=== PATIENT | male | born 1985 | race Caucasian/White ===

== ENCOUNTER → 2017-04-29 16:48 | Outpatient (CLI) | payer MEDICAID, SELFPAY ==
--- NOTE | 2017-04-29 16:55 | XR_ITS ---
XR hand RT min 3V HISTORY: Right hand pain following injury ITS.REASON: CONTUSION OF RT HAND, INITIAL ENCOUNTER ORDERING PHYSICIAN: Edvin Ray MD PATIENT AGE: 31 years COMPARISON: None FINDINGS: No fracture or dislocation. No lytic or blastic change. There is normal mineralization.. The joint spaces are well-preserved. No significant degenerative/arthritic changes. No erosive changes evident.. IMPRESSION: Negative, no acute finding
== END ==
PROVIDERS: PCP Internal Medicine Adolescent Medicine; Visit Provider Internal Medicine Adolescent Medicine
DX: S60.221A Contusion of right hand, initial encounter (principal)
CPT/HCPCS: 73130

== ENCOUNTER → 2017-11-02 12:10 | Outpatient (CLI) | payer MEDICAID, SELFPAY ==
--- NOTE | 2017-11-02 12:12 | CA_ITS ---
PROCEDURE: 2-D M-mode and color Doppler study INDICATIONS FOR THE TEST: Chest pain + COPD Heart Murmur Tobacco Smoking Palpitations Fatigue+ Syncope Edema Hypertension+Diabetes Mellitus Rheumatic Fever SOB+GUTIERREZ+Obesity Hyperlipidemia Family History HD Additional History DIZZINESS, ABN EKG PATIENT INFORMATION HEIGHT: 72 WEIGHT:210 GENDER: Male B/P:152/85 2-D/M-MODE INTERPRETATION: 2-D MEASUREMENTS OBSERVED VALUES IN CMS Right Ventricular Dimension (RVDd) 2.2 Interventricular Septum (Thickness)(IVsd) 1.1 Left Ventricular Internal Dimensions(LVIDd) 5.6 Left Ventricular Posterior Wall (Thickness)(LVPWd) 0.8 Aortic Root 3.2 Aortic Cusp Separation 2.3 Left Atrial Dimensions (LAD) 3.5 2D 1. Left atrium is normal size, left ventricle is normal size, there is preserved left ventricular systolic function, visually estimated ejection fraction 55% with no obvious regional wall motion abnormality. 2. The right atrium and right ventricle are normal size and contractility. 3. The aortic valve is minimally thickened and fibrosed. 4. The mitral valve leaflets are mildly myxomatous, there is mild prolapse, there is no mitral stenosis. 5. The tricuspid valve is grossly normal. 6. The pulmonic valve is poorly visualized. 7. No significant pericardial effusion noted. DOPPLER INTERROGATION: Doppler interrogation of the aortic, mitral and tricuspid valve reveals presence of mild mitral and tricuspid regurgitation, tricuspid regurgitant jet velocity is insufficient for calculation of the right ventricular systolic pressure, diastolic parameters are within normal range. CONCLUSION: 1. Normal left ventricular size, preserved left ventricular systolic function, visually estimated ejection fraction 55% with no obvious regional wall motion abnormality. Diastolic parameters are within normal range. 2. Mild mitral valve prolapse associated with mild mitral regurgitation 3. Mild tricuspid regurgitation 4. No significant pericardial effusion noted.
== END ==
PROVIDERS: PCP Internal Medicine Adolescent Medicine; Visit Provider Internal Medicine
DX: R94.31 Abnormal electrocardiogram [ECG] [EKG] (principal); R06.00 Dyspnea, unspecified; R42 Dizziness and giddiness; R00.2 Palpitations; I20.8 Other forms of angina pectoris
CPT/HCPCS: 93306

== ENCOUNTER → 2017-11-11 11:58 | Outpatient (CLI) | payer MEDICAID, SELFPAY | PROVIDERS: PCP Internal Medicine Adolescent Medicine; Visit Provider Internal Medicine | DX: T82.868A Thrombosis due to vascular prosthetic devices, implants and grafts, initial encounter (principal) | CPT/HCPCS: 93926; 93931 ==

== ENCOUNTER → 2017-11-23 08:43 | Outpatient (CLI) | payer MEDICAID, SELFPAY ==
--- NOTE | 2017-11-23 08:44 | CT_ITS ---
CT angio chest HISTORY: Shortness of air ITS.REASON: soa ORDERING PHYSICIAN: Kael Ovalle MD PATIENT AGE: 32 years COMPARISON: 07/18/2016 TECHNIQUE: Axial images obtained following the administration of 75 mL of Isovue 370 . Sagittal, and coronal reformatted images are also generated and reviewed. All CT scans at the facility use one or more dose reduction, viz: automated exposure control, ma/kV adjustment per patient size (including targeted exams where dose is matched to indication, i.e. head), or iterative reconstruction technique. FINDINGS: No evidence of aortic aneurysm or dissection. No evidence of pulmonary embolus. No mediastinal or hilar mass or adenopathy. Normal heart size. No evidence of pericardial effusion. There is calcified granuloma in the central aspect of the right upper lobe. Lungs are otherwise clear without evidence consolidation mass or effusion. No central obstructing lesions. No acute bony anomalies. Images of the upper abdomen show no acute finding. The celiac artery is patent however, the origin of the celiac artery is not visualized on this study and is below the level of its normal origin at the T12 region. There could be a common origin of celiac and SMA however, this area is not imaged on this study. IMPRESSION: 1. Negative CT angiogram of the chest, no acute finding. No evidence of pulmonary embolus, aortic aneurysm, or aortic dissection. 2. 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
--- NOTE | 2017-11-23 09:23 | HMH.ITSHM ---
AMLODIPINE,LISINOPRIL HCTZ,METOPROLOL
== END ==
PROVIDERS: PCP Internal Medicine Adolescent Medicine; Visit Provider Internal Medicine
DX: R06.00 Dyspnea, unspecified (principal)
CPT/HCPCS: 71275; Q9967

== ENCOUNTER → 2020-03-14 11:54 | Outpatient (CLI) | payer OTHER, SELFPAY ==
[2020-03-14 13:05] LABS: Bilirubin,Unconjugated 0.6 mg/dL (0.0-1.1)
[2020-03-14 13:06] LABS: Alanine Aminotransferase 33 U/L (12-78); Alkaline Phosphatase 57 U/L (38-126); Aspartate Amino Transferase 34 U/L (17-59); Bilirubin,Indirect 0.6 mg/dL (0.0-0.9); Bilirubin,Total 0.6 mg/dl (0.2-1.3); Chol/HDL Ratio 4.3 (1-3.5); Cholesterol 185 mg/dl (140-200); HDL Cholesterol 43 mg/dl (40-60); Total Protein,Serum 8.1 g/dl (6.3-8.2); Triglycerides 154 mg/dl (30-150); VLDL Cholesterol 31 mg/dL (0-40)
[2020-03-14 13:17] LABS: Direct LDL Cholesterol 108.08 mg/dL (100-129)
== END ==
PROVIDERS: Visit Provider Urology
DX: R00.2 Palpitations (principal); Z79.899 Other long term (current) drug therapy
CPT/HCPCS: 36415; 80061; 80076

== ENCOUNTER → 2020-03-15 12:32 | Outpatient (CLI) | payer OTHER, SELFPAY ==
--- NOTE | 2020-03-15 12:33 | CA_ITS ---
APPROVED REPORT EXAM: Comprehensive 2D, Doppler, and color-flow Echocardiogram [employer] Climber: Roselia Moreira RT(R) Ht: 6 ft 0 in Wt: 228lbs BSA: 2.25 BP: 131/83 mmHg Indications: tachycardia, CP, ex smoker, palpitations, HTN, GUTIERREZ, obesity 2D Dimensions LVOT 2.25 cm (M/F) 1.5-2.5 M-Mode Dimensions RVDd 2.09 cm (0.9-2.6) LA Diam 2.78 cm (1.9-4.0) LVDd 5.13 cm (3.5-5.7) Ao Diam 3.05 cm (2.0-3.7) LVDs 3.80 cm (3.5-5.7) IVSd 0.91 cm (0.6-1.1) PWd 1.25 cm (0.6-1.1) EF (Teich) 50.60% FS 25.90% EDV (Teich) 125.50 mL ESV (Teich) 62.00 mL LV Diastology E Decel Time 180.00 (160-240 msec) E/A Ratio 2.0 MED E' 12.40 (< 7 cm/sec) E'/MED E' Ratio 6.58 (>14) LAT E' 15.30 (<10 cm/sec) E/LAT E' Ratio 5.33 (>14) Mitral Valve MV E Max Parvez. 82.00 (40-130 cm/s) MV A Velocity 41.00 (40-130 cm/s) E/A Ratio 1.97 MV Decel. Time 180.00 (160-240 ms) MV PHT 53.00 ms Left Ventricle Left atrium is normal size, left ventricle is normal size, visually estimated ejection fraction 55% with no regional wall motion abnormality, diastolic parameters are within normal range. Right Ventricle Right atrium and right ventricle are normal size and contractility. Aortic Valve Aortic valve is grossly normal, there is no aortic stenosis or aortic insufficiency. Mitral Valve Mitral valve is grossly normal, there is trace mitral regurgitation. Tricuspid Valve Tricuspid valve is grossly normal, there is trace tricuspid regurgitation, tricuspid regurgitation jet velocity is inadequate for calculation of the right ventricular systolic pressure. Pulmonic Valve Pulmonic valve is poorly visualized. Great Vessels Aortic root is normal size. Pericardium No significant pericardial effusion noted Conclusion 1. Normal left ventricular size, preserved left ventricular systolic function, visually estimated ejection fraction 55% with no regional wall motion abnormality, diastolic parameters are within normal range. 2. Trace mitral and tricuspid regurgitation of no hemodynamic significance. 3. No significant pericardial effusion noted. Electronically signed by : Joey Escalera, 03/15/2020 15:27:09
== END ==
PROVIDERS: PCP Internal Medicine Adolescent Medicine; Visit Provider Urology
DX: R07.89 Other chest pain (principal); R00.0 Tachycardia, unspecified; R06.00 Dyspnea, unspecified; I10 Essential (primary) hypertension
CPT/HCPCS: 93306

== ENCOUNTER 2020-04-30 18:13 | Inpatient (IN) | payer OTHER, SELFPAY ==
--- NOTE | 2020-04-30 16:52 | CT_ITS ---
PROCEDURE: CT ORBIT BI WO/W CON CLINICAL HISTORY: swelling left eye, pre-auricular LNs Left possible cellulitis Left eye red and revpllen for 2 weeks. Pt handles chemically treated eye spots COMPARISON: No exams were available for comparison TECHNIQUE: Axial images obtained with sagittal and coronal reformats. All CT scans at the facility use one or more dose reduction, viz: automated exposure control, ma/kV adjustment per patient size (including targeted exams where dose is matched to indication, i.e. head), or iterative reconstruction technique. FINDINGS: There is a thin rind of increased soft tissue density along the inferior aspect of the left orbit anteriorly this appears to be preseptal. This shows some minimal enhancement and may be due to periorbital cellulitis. No postseptal inflammation. No obvious abscess. There is some increased density also in the subcutaneous soft tissues in the infraorbital region on the left. No obvious abscess. The orbit itself has an unremarkable appearance. The extraocular muscles are unremarkable. No orbital mass. No evidence of sinusitis. No fractures. Incidental note is made of a solid appearing nodule in the left parotid gland at 1.9 cm. This is in the anterior and superior aspect of the left parotid. There are few small nodular opacities in the parotid on both sides and may be due to small lymph nodes.. IMPRESSION: The findings are compatible with left periorbital cellulitis. There is a thin rind of increased soft tissue density along the inferior aspect of the left orbit anteriorly and in the appropriate clinical setting may represent cellulitis. Please correlate with clinical parameters. No postseptal inflammation or edema apparent. Consider follow-up to confirm resolution 19 mm left parotid nodule and may be due to a Warthin's tumor or pleomorphic adenoma. Dictated by: Erich Walker MD 05/01/2020 09:11 Erich Walker MD in [place] 05/01/2020 09:11
[2020-04-30 18:06] VITALS: BP 112/85; PULSE 121; RESP 16; TEMP 37.4; O2SAT 96; BMI 30.4
--- NOTE | 2020-04-30 18:06 | PC.NURSE ---
Pt arrived to the floor at this time.
[2020-04-30 19:11] LABS: Basophils # 0.1 K/mm3 (0-0.2); Basophils % 0.7 % (0.1-2.0); Eosinophils # 0.4 K/mm3 (0.0-0.4); Eosinophils % 3.4 % (0.1-12.0); Hematocrit 46.4 % (42.0-52.0); Lymphocytes # 2.5 K/mm3 (0.7-4.5); Lymphocytes % 20.8 % (10-50); Mean Corpuscular HGB Conc 34.5 g/dL (31.8-35.4); Mean Corpuscular Hemoglobin 30.2 pg (27.0-31.2); Mean Corpuscular Volume 87.6 fl (80-94); Mean Platelet Volume 8.4 fl (7.4-10.4); Monocytes # 0.6 K/mm3 (0.1-1.0); Monocytes % 4.5 % (1.7-9.3); Neutrophils # 8.5 K/mm3 (1.8-7.8); Neutrophils % 70.6 % (37.0-80.0); Platelet Count 204 K/mm3 (142-424); Red Cell Distribution Width 13.1 % (11.5-17.5); White Blood Count 12.1 K/mm3 (4.8-10.8)
[2020-04-30 19:51] LABS: Coronavirus 19 IgG Antibody Negative (Negative); Coronavirus 19 IgM Antibody Negative (Negative)
[2020-04-30 20:00] VITALS: BP 121/71; PULSE 75; RESP 18; TEMP 37; O2SAT 94
--- NOTE | 2020-04-30 21:12 | HMH.HP ---
*Admission Date: 04/30/20 *Chief complaint: periorbital cellulitis, failure of outpatient therapy *History of present illness: Mr. Bo is a 34-year-old male who was seen last week in our office after onset of left eye pain and swelling. When seen on , he states that he had had approximately a week of worsening swelling, redness, soreness of his high with a tender lesion in front of his left ear. Denies any change in vision, pain with movement of his eye. No fever or known trauma. Was started on antibiotics at that time and seen for close follow-up over the weekend. On Thursday had subjective improvement in his symptoms and was tolerating oral antibiotics without difficulty. However since Thursday he has had worsening swelling of his eye, tenderness of his eyelids, and increased swelling of left preauricular lymph node. Still remains afebrile. Having clear drainage from his eye. Hemodynamically stable. Decision made to direct admit for further management including imaging of orbits/face with CT and IV antibiotics. [facility] History I have reviewed the patient's past medical history: Yes Medical History: Reports:: Hypertension, Palpitations Denies:: Cancer, Diabetes Mellitus Type 1, Diabetes Mellitus Type 2, Internal Pacemaker, MRSA, Seizures *Have you ever received a pneumonia vaccine?: No *Have you received a flu vaccine this season?: Yes Other Medical History: Reports: Other Other Surgeries: Yes: No Previous Surgery, Cardiac Catheterization (2019). No: Pacemaker Amputation: No Fractures: No - *Social History Last grade of school completed: High school graduate Smoking Status: Former smoker Tobacco Type: cigarettes Alcohol Intake: never Alcohol Intake Frequency:: holidays/special occasions only Substance Use Type: denies use *Occupational Status:: employed Housing: house Household Members: spouse, children *Travel in the last 8 weeks: None Family Hx:: Cancer Review of Systems - Review of Systems Review of systems:: pertinent systems reviewed and negative unless documented below (14 point review of systems performed, pertinent positives and negatives as per HPI) Meds Home Medications Medication Instructions Recorded Confirmed Type Amlodipine Besylate 10 mg PO DAILY 04/30/20 04/30/20 History Cefdinir [Omnicef 300mg Capsule] 300 mg PO BID 04/30/20 04/30/20 History Lisinopril/Hydrochlorothiazide 1 tab PO DAILY 04/30/20 04/30/20 History [Lisinopril-Hctz 20-12.5 mg Tab] Metoprolol Succinate [Metoprolol 100 mg PO DAILY 04/30/20 04/30/20 History Succinate 100mg Tablet*] Allergies Allergy/AdvReac Type Severity Reaction Status Date / Time amoxicillin [AMOXICILLIN] Allergy Unknown Verified 03/14/20 13:41 Penicillins [PENICILLINS] Allergy Unknown Verified 03/14/20 13:41 Exam Vital signs and Labs for Last 24 Hours: Temp Pulse Resp BP Pulse Ox 99.3 F 121 H 16 112/85 96 04/30/20 18:06 04/30/20 18:06 04/30/20 18:06 04/30/20 18:06 04/30/20 18:06 Laboratory Results - last 24 hr 04/30/20 18:50: WBC 12.1 H, RBC 5.30, Hgb 16.0, Hct 46.4, MCV 87.6, MCH 30.2, MCHC 34.5, RDW 13.1, Plt Count 204, MPV 8.4, Neut % (Auto) 70.6, Lymph % (Auto) 20.8, [place] % (Auto) 4.5, Eos % (Auto) 3.4, Baso % (Auto) 0.7, Neut # (Auto) 8.5 H, Lymph # (Auto) 2.5, [place] # (Auto) 0.6, Eos # (Auto) 0.4, Baso # (Auto) 0.1 04/30/20 18:50: SARS-CoV-2 IgG Ab (Rapid) Negative, SARS-CoV-2 IgM Ab (Rapid) Negative I & O for Last 24 hours: Intake & Output 04/27/20 04/28/20 04/29/20 04/30/20 23:59 23:59 23:59 23:59 Weight 101.86 kg - Constitutional no acute distress - *Routine HEENT Exam Head: Present: normocephalic Eye: Present: EOMI, PERRL, scleral injection, periorbital swelling (left), periorbital tenderness (left) ENT: Present: mucous membranes moist Comments: swollen left pre-auricular LN - *Routine Neck Exam Present: supple. Absent: lymphadenopathy - *Routine Respiratory Exam Present: CTA bilate
[2020-04-30 21:21] LABS: Alanine Aminotransferase 21 U/L (12-78); Albumin/Globulin Ratio 1.3 (1.1-1.8); Alkaline Phosphatase 84 U/L (38-126); Anion Gap 13.1 mEq/L (5-15); Aspartate Amino Transferase 27 U/L (17-59); Bilirubin,Total 0.4 mg/dl (0.2-1.3); Blood Urea Nitrogen 20 mg/dl (9-20); Calcium 9.7 mg/dl (8.4-10.2); Carbon Dioxide 26 mmol/L (22.0-30.0); Chloride 99 mmol/L (98-107); Creatinine Clearance Estimated 94 mL/min (50-200); Estimated Glomerular Filt Rate 50 ml/min (>60); GFR (African American) 60 ML/MIN (>60); Globulin 3.9 g/dL (1.3-3.2); Glucose 114 mg/dl (74-100); Potassium 4.1 mmoL/L (3.5-5.1); Sodium 134 mmol/L (136-145); Total Protein,Serum 8.9 g/dl (6.3-8.2)
--- NOTE | 2020-04-30 21:22 | PC.NURSE ---
Patient off Floor for CT scan.
--- NOTE | 2020-04-30 21:45 | PC.NURSE ---
patient back up to floor.
[2020-04-30 23:19] LABS: Erythrocyte Sedimentation Rate 18 mm/hr (0-15)
--- NOTE | 2020-05-01 03:46 | PC.NURSE ---
Pt has slept throughout this shift, Pt A&O x4, BLT lungs CTA, Bowel sounds present in all 4 quadrants, Pt is on RA, Pt denies headache, SOA, N/V, or pain. Pt has swelling around the Lt eye
[2020-05-01 04:00] VITALS: BP 116/68; PULSE 89; RESP 18; TEMP 36.6; O2SAT 99
[2020-05-01 05:18] VITALS: BMI 30.4
--- NOTE | 2020-05-01 06:40 | HMH.ACPN2 ---
Internal Medicine - PN: Subj *Date: 05/01/20 *Time: 10:44 Interval history: Patient remained afebrile overnight. I appears better this morning upon entering the room. Patient states it feels better as well, decreased pain and discomfort. No change in vision. Denies any nausea vomiting or diarrhea. No shortness of breath or cough. Discomfort of swelling in front of his left ear is also somewhat less painful today. Exam Vital signs and Labs for Last 24 Hours: Temp Pulse Resp BP Pulse Ox 97.8 F 89 18 116/68 99 05/01/20 04:00 05/01/20 04:00 05/01/20 04:00 05/01/20 04:00 05/01/20 04:00 Laboratory Results - last 24 hr 04/30/20 18:50: WBC 12.1 H, RBC 5.30, Hgb 16.0, Hct 46.4, MCV 87.6, MCH 30.2, MCHC 34.5, RDW 13.1, Plt Count 204, MPV 8.4, Neut % (Auto) 70.6, Lymph % (Auto) 20.8, [place] % (Auto) 4.5, Eos % (Auto) 3.4, Baso % (Auto) 0.7, Neut # (Auto) 8.5 H, Lymph # (Auto) 2.5, [place] # (Auto) 0.6, Eos # (Auto) 0.4, Baso # (Auto) 0.1 04/30/20 18:50: Sodium 134 L, Potassium 4.1, Chloride 99, Carbon Dioxide 26, Anion Gap 13.1, BUN 20, Creatinine 1.60 H, Estimated Creat Clear 94, Estimated GFR 50 L, Est GFR ( Amer) 60, Glucose 114 H, Calcium 9.7, Total Bilirubin 0.4, AST 27, ALT 21, Alkaline Phosphatase 84, Total Protein 8.9 H, Albumin 5.0, Globulin 3.9 H, Albumin/Globulin Ratio 1.3 04/30/20 18:50: SARS-CoV-2 IgG Ab (Rapid) Negative, SARS-CoV-2 IgM Ab (Rapid) Negative 04/30/20 18:50: ESR 18 H 04/30/20 18:50: C-Reactive Protein 57.0 H I & O for Last 24 hours: Intake & Output 04/28/20 04/29/20 04/30/20 05/01/20 23:59 23:59 23:59 23:59 Intake Total 360 / 360 Balance 360 / 360 Weight 101.86 kg 101.746 kg Narrative: - Constitutional no acute distress - *Routine HEENT Exam Head: Present: normocephalic Eye: Present: EOMI, PERRL, scleral injection, interval improvement and periorbital swelling (left), periorbital tenderness (left) ENT: Present: mucous membranes moist Comments: swollen left pre-auricular LN - *Routine Neck Exam Present: supple. Absent: lymphadenopathy - *Routine Respiratory Exam Present: CTA bilaterally - *Routine Cardiovascular Exam Present: RRR - *Routine Abdominal Exam Present: soft, normoactive bowel sounds. Absent: tenderness - *Routine Extremities Exam Absent: cyanosis, clubbing, edema - *Routine Skin Exam Present: warm. Absent: rash - *Routine Neurological Exam Present: alert, oriented X3 Assessment and Plan (1) Periorbital cellulitis of left eye Status: Acute Category: Medical Code(s): L03.213 - Periorbital cellulitis (2) Failure of outpatient treatment Status: Acute Category: Medical Code(s): Z78.9 - Other specified health status (3) HTN (hypertension) Status: Chronic Qualifiers: Hypertension type: essential hypertension Qualified Code(s): I10 - Essential (primary) hypertension Category: Medical Code(s): I10 - Essential (primary) hypertension (4) Obesity, Class I, BMI 30.0-34.9 (see actual BMI) Status: Chronic Category: Medical Code(s): E66.9 - Obesity, unspecified (5) RYAN (acute kidney injury) Status: Acute Category: Medical Code(s): N17.9 - Acute kidney failure, unspecified - Assessment and plan all Dx Assessment and Plan for all problems:: 34-year-old male with left periorbital cellulitis. Failed outpatient therapy. Admitted for IV antibiotics and CT of the face. CT performed, positive for cellulitis, no abscess behind orbit. Enlarged lymph node preauricular, suspicious for abscess. ENT unavailable, will consult general surgery to assist with possible I&D. Continue broad-spectrum antibiotics, appears to be having interval improvement since starting IV antibiotics. regular diet LR bolus x 1L over 2 hrs as creatinine somewhat improved, will continue some fluid resuscitation. Full code
--- NOTE | 2020-05-01 07:51 | P.CONPHA_ITS ---
- Pharmacy Consult Date: 05/01/20 Time: 07:51 Referring provider: DR. BEGUM Reason for Consult:: VANCOMYCIN DOSING Allergies and ADEs:: Allergies Allergy/AdvReac Type Severity Reaction Status Date / Time amoxicillin [AMOXICILLIN] Allergy Unknown Verified 03/14/20 13:41 Penicillins [PENICILLINS] Allergy Unknown Verified 03/14/20 13:41 Home Medications:: Home Medications Medication Instructions Recorded Confirmed Type Amlodipine Besylate 10 mg PO DAILY 04/30/20 04/30/20 History Cefdinir [Omnicef 300mg Capsule] 300 mg PO BID 04/30/20 04/30/20 History Lisinopril/Hydrochlorothiazide 1 tab PO DAILY 04/30/20 04/30/20 History [Lisinopril-Hctz 20-12.5 mg Tab] Metoprolol Succinate [Metoprolol 100 mg PO DAILY 04/30/20 04/30/20 History Succinate 100mg Tablet*] Height: 1.83 m Weight: 101.746 kg Laboratory Results:: Laboratory Results - last 24 hr 04/30/20 18:50: WBC 12.1 H, RBC 5.30, Hgb 16.0, Hct 46.4, MCV 87.6, MCH 30.2, MCHC 34.5, RDW 13.1, Plt Count 204, MPV 8.4, Neut % (Auto) 70.6, Lymph % (Auto) 20.8, [place] % (Auto) 4.5, Eos % (Auto) 3.4, Baso % (Auto) 0.7, Neut # (Auto) 8.5 H, Lymph # (Auto) 2.5, [place] # (Auto) 0.6, Eos # (Auto) 0.4, Baso # (Auto) 0.1 04/30/20 18:50: Sodium 134 L, Potassium 4.1, Chloride 99, Carbon Dioxide 26, Anion Gap 13.1, BUN 20, Creatinine 1.60 H, Estimated Creat Clear 94, Estimated GFR 50 L, Est GFR ( Amer) 60, Glucose 114 H, Calcium 9.7, Total Bilirubin 0.4, AST 27, ALT 21, Alkaline Phosphatase 84, Total Protein 8.9 H, Albumin 5.0, Globulin 3.9 H, Albumin/Globulin Ratio 1.3 04/30/20 18:50: SARS-CoV-2 IgG Ab (Rapid) Negative, SARS-CoV-2 IgM Ab (Rapid) Negative 04/30/20 18:50: ESR 18 H 04/30/20 18:50: C-Reactive Protein 57.0 H Medical History: Reports:: Hypertension, Palpitations Denies:: Cancer, Diabetes Mellitus Type 1, Diabetes Mellitus Type 2, Internal Pacemaker, MRSA, Seizures Assessment and Plan (1) Periorbital cellulitis of left eye Status: Acute Category: Medical Code(s): L03.213 - Periorbital cellulitis (2) Failure of outpatient treatment Status: Acute Category: Medical Code(s): Z78.9 - Other specified health status (3) HTN (hypertension) Status: Chronic Qualifiers: Hypertension type: essential hypertension Qualified Code(s): I10 - Essential (primary) hypertension Category: Medical Code(s): I10 - Essential (primary) hypertension - Assessment and plan all Dx Assessment and Plan for all problems:: Age: 34 yo Serum creatinine: 1.6 mg/dL Height: 72.0 Inches Weight (kg): 101 D Assessment: IBW (kg): 77.60 Dosing wt(kg): 101 Estimated Creatinine clearance (ml/min): 71.4 CRCL method: Cockcroft and Gault using ibw(default). Drug selected: Vancomycin Loading dose (mg): 0 Vd (liters): 80.8 (factor used: 0.8 L/kg) Deangelo (hr-1): 0.064 Half life (hrs): 10.83 Recommended dose: 1500 mg Interval: 12 hrs Infusion time (hrs): 2.0 Predicted peak (mcg/mL): 32.5 Predicted trough (mcg/mL): 17.14 Total body weight is being used for vancomycin dosing. Recommendations: Give Vancomycin 1500 mg q 12 hrs with an expected Cpeak of 32.5 mcg/ml and an expected Ctrough of 17.14 mcg/ml
[2020-05-01 08:00] VITALS: BP 122/78; PULSE 89; RESP 16; TEMP 37.1; O2SAT 99
--- NOTE | 2020-05-01 08:04 | P.CONPHA_ITS ---
[facility] Pharmacy VTE Monitoring - Patient Demographics Admission date: 05/01/20 Report Date: 05/01/20 Time: 08:04 Allergies/Adverse Reactions: Patient Allergies amoxicillin [AMOXICILLIN] Allergy (Unknown, Verified 03/14/20 13:41) Penicillins [PENICILLINS] Allergy (Unknown, Verified 03/14/20 13:41) Height: 1.83 m Weight: 101.746 kg Patient Problems: Current Active Problems Periorbital cellulitis of left eye (Acute) Failure of outpatient treatment (Acute) HTN (hypertension) (Chronic) - VTE Risk Labs: VTE Related Lab Results Hgb 16.0 g/dL (14.1-18.0) 04/30/20 18:50 Hct 46.4 % (42.0-52.0) 04/30/20 18:50 Plt Count 204 K/mm3 (142-424) 04/30/20 18:50 BUN 20 mg/dl (9-20) 04/30/20 18:50 Creatinine 1.60 mg/dl (0.66-1.25) H 04/30/20 18:50 Estimated Creat Clear 94 mL/min (50-200) 04/30/20 18:50 Was VTE Risk Assessment Performed: Yes VTE Score: 1 VTE Risk Level: Very Low Risk Clinical Trial Participant: No - Prophylaxis VTE Prophylaxis Ordered?: Yes Types of VTE Prophylaxis: TEDS Knee High
[2020-05-01 08:42] LABS: Chloride 98 mmol/L (98-107)
[2020-05-01 08:43] LABS: Potassium 3.5 mmoL/L (3.5-5.1); Sodium 135 mmol/L (136-145)
[2020-05-01 08:46] LABS: Anion Gap 9.5 mEq/L (5-15); Blood Urea Nitrogen 18 mg/dl (9-20); Calcium 9.3 mg/dl (8.4-10.2); Carbon Dioxide 31 mmol/L (22.0-30.0); Creatinine Clearance Estimated 107 mL/min (50-200); Estimated Glomerular Filt Rate 58 ml/min (>60); GFR (African American) 70 ML/MIN (>60); Glucose 114 mg/dl (74-100)
[2020-05-01 08:51] LABS: C-Reactive Protein 52.6 mg/L (0-4)
--- NOTE | 2020-05-01 10:13 | HMH.PHAINT ---
HOME MEDICATION RECONCILIATION COMPLETED USING LIST FROM HOME PHARMACY AND PT INTERVIEW
[2020-05-01 11:15] LABS: Basophils # 0.1 K/mm3 (0-0.2); Basophils % 0.6 % (0.1-2.0); Eosinophils # 0.5 K/mm3 (0.0-0.4); Eosinophils % 5.5 % (0.1-12.0); Hematocrit 42.8 % (42.0-52.0); Hemoglobin 14.8 g/dL (14.1-18.0); Lymphocytes # 1.8 K/mm3 (0.7-4.5); Lymphocytes % 20.8 % (10-50); Mean Corpuscular HGB Conc 34.6 g/dL (31.8-35.4); Mean Corpuscular Hemoglobin 29.9 pg (27.0-31.2); Mean Corpuscular Volume 86.5 fl (80-94); Mean Platelet Volume 8.9 fl (7.4-10.4); Monocytes # 0.5 K/mm3 (0.1-1.0); Monocytes % 5.8 % (1.7-9.3); Neutrophils # 5.7 K/mm3 (1.8-7.8); Neutrophils % 67.3 % (37.0-80.0); Platelet Count 171 K/mm3 (142-424); Red Blood Count 4.95 M/mm3 (4.60-6.20); Red Cell Distribution Width 13.3 % (11.5-17.5); White Blood Count 8.5 K/mm3 (4.8-10.8)
--- NOTE | 2020-05-01 12:54 | HMH.GSCON ---
*Admission Date: 05/01/20 *Reason for consult:: Facial edema and cellulitis *History of present illness: Mr. Bo is a 34-year-old male from [place] who has had left periorbital edema, redness, and swelling for about 2 weeks. He had presented to his primary care provider's office about 1 week ago and was started on antibiotics. Patient had transient improvement in his symptoms with oral antibiotics. However, he had subsequently developed worsening swelling of his eye, tenderness of his eyelids, and increased swelling of left preauricular nodule. Last night he was made a direct admit for further management including imaging of orbits/face with CT and IV antibiotics. He underwent CT scan which reveals findings consistent with periorbital cellulitis. There is also noted a nodule of the parotid gland. Reportedly ENT consultation was made but in ENT surgeons absence general surgical consultation was requested. Review of Systems - Review of Systems Review of systems:: pertinent systems reviewed and negative unless documented below [facility] History I have reviewed the patient's past medical history: Yes Medical History: Reports:: Hypertension, Palpitations Denies:: Cancer, Diabetes Mellitus Type 1, Diabetes Mellitus Type 2, Internal Pacemaker, MRSA, Seizures *Have you ever received a pneumonia vaccine?: No *Have you received a flu vaccine this season?: Yes Other Medical History: Reports: Other Other Surgeries: Yes: No Previous Surgery, Cardiac Catheterization (2019). No: Pacemaker Amputation: No Fractures: No - *Social History Last grade of school completed: High school graduate Smoking Status: Former smoker Tobacco Type: cigarettes Alcohol Intake: never Alcohol Intake Frequency:: holidays/special occasions only Substance Use Type: denies use *Occupational Status:: employed Housing: house Household Members: spouse, children *Travel in the last 8 weeks: None Family Hx:: Cancer Meds Home Medications Medication Instructions Recorded Confirmed Type Amlodipine Besylate 10 mg PO DAILY 04/30/20 04/30/20 History Cefdinir [Omnicef 300mg Capsule] 300 mg PO BID 04/30/20 04/30/20 History Lisinopril/Hydrochlorothiazide 1 tab PO DAILY 04/30/20 05/01/20 History [Lisinopril-Hctz 20-12.5 mg Tab] Metoprolol Succinate [Metoprolol 100 mg PO DAILY 02/01/21 02/01/21 History Succinate 100mg Tablet*] Sulfamethoxazole/Trimethoprim 1 tab PO BID 05/01/20 05/01/20 History [Bactrim DS tablet] Allergies Allergy/AdvReac Type Severity Reaction Status Date / Time amoxicillin [AMOXICILLIN] Allergy Unknown Verified 03/14/20 13:41 Penicillins [PENICILLINS] Allergy Unknown Verified 03/14/20 13:41 Exam Vital signs and Labs for Last 24 Hours: Temp Pulse Resp BP Pulse Ox 98.8 F 89 16 122/78 99 05/01/20 08:00 05/01/20 08:00 05/01/20 08:00 05/01/20 08:00 05/01/20 08:00 Laboratory Results - last 24 hr 04/30/20 18:50: WBC 12.1 H, RBC 5.30, Hgb 16.0, Hct 46.4, MCV 87.6, MCH 30.2, MCHC 34.5, RDW 13.1, Plt Count 204, MPV 8.4, Neut % (Auto) 70.6, Lymph % (Auto) 20.8, [place] % (Auto) 4.5, Eos % (Auto) 3.4, Baso % (Auto) 0.7, Neut # (Auto) 8.5 H, Lymph # (Auto) 2.5, [place] # (Auto) 0.6, Eos # (Auto) 0.4, Baso # (Auto) 0.1 04/30/20 18:50: Sodium 134 L, Potassium 4.1, Chloride 99, Carbon Dioxide 26, Anion Gap 13.1, BUN 20, Creatinine 1.60 H, Estimated Creat Clear 94, Estimated GFR 50 L, Est GFR ( Amer) 60, Glucose 114 H, Calcium 9.7, Total Bilirubin 0.4, AST 27, ALT 21, Alkaline Phosphatase 84, Total Protein 8.9 H, Albumin 5.0, Globulin 3.9 H, Albumin/Globulin Ratio 1.3 04/30/20 18:50: SARS-CoV-2 IgG Ab (Rapid) Negative, SARS-CoV-2 IgM Ab (Rapid) Negative 04/30/20 18:50: ESR 18 H 04/30/20 18:50: C-Reactive Protein 57.0 H 05/01/20 08:28: WBC 8.5 D, RBC 4.95, Hgb 14.8, Hct 42.8, MCV 86.5, MCH 29.9, MCHC 34.6, RDW 13.3, Plt Count 171, MPV 8.9, Neut % (Auto) 67.3, Lymph % (Auto) 20.8, [place] % (Auto) 5.8, Eos % (Auto) 5.5, Baso % (Auto) 0.6,
[2020-05-01 16:00] VITALS: BP 103/67; PULSE 75; RESP 16; TEMP 36.3; O2SAT 98
--- NOTE | 2020-05-01 17:20 | PC.NURSE ---
1630 RN reassessment completed. Pt remains A&O X4, has c/o headache x1 this shift. Pt received tylenol per EMAR x1 and reported improvement in headache. Pt continues to report no loss of vision to left eye, reports that he believes swelling has improved. IV S/L at this time. Visitor at bedside, no needs voiced, will continue to monitor.
[2020-05-01 20:00] VITALS: BP 113/67; PULSE 87; RESP 16; TEMP 36.9; O2SAT 98
--- NOTE | 2020-05-02 03:41 | PC.NURSE ---
All care and documentation for this patient provided by Chucho rivero RN, was under the direct supervision of Vera Giles RN
[2020-05-02 04:00] VITALS: BP 112/59; PULSE 96; RESP 16; TEMP 36.7; O2SAT 99
[2020-05-02 05:00] VITALS: BMI 30.1
--- NOTE | 2020-05-02 05:38 | PC.NURSE ---
shift summary pts left eye is still swollen but has no vision changes. pt states he can see normally out of both eyes. pt is A/O X4, and denies any pain, nausea, vomiting, or diarrhea
--- NOTE | 2020-05-02 07:10 | P.PN_ITS ---
Subjective Patient reports: no new complaints Narrative: Patient without any new complaints. Progress Note: A&P (1) Periorbital cellulitis of left eye Status: Acute (2) Failure of outpatient treatment Status: Acute (3) HTN (hypertension) Status: Chronic (4) Obesity, Class I, BMI 30.0-34.9 (see actual BMI) Status: Chronic (5) RYAN (acute kidney injury) Status: Acute Assessment and Plan for All Diagnoses:: Patient with left parotid lesion/mass with periorbital edema. Awaiting ENT evaluation Exam Vital signs and Labs for Last 24 Hours: Temp Pulse Resp BP Pulse Ox 98.1 F 96 H 16 112/59 L 99 05/02/20 04:00 05/02/20 04:00 05/02/20 04:00 05/02/20 04:00 05/02/20 04:00 Laboratory Results - last 24 hr 05/01/20 08:28: WBC 8.5 D, RBC 4.95, Hgb 14.8, Hct 42.8, MCV 86.5, MCH 29.9, MCHC 34.6, RDW 13.3, Plt Count 171, MPV 8.9, Neut % (Auto) 67.3, Lymph % (Auto) 20.8, [place] % (Auto) 5.8, Eos % (Auto) 5.5, Baso % (Auto) 0.6, Neut # (Auto) 5.7, Lymph # (Auto) 1.8, [place] # (Auto) 0.5, Eos # (Auto) 0.5 H, Baso # (Auto) 0.1 05/01/20 08:28: Sodium 135 L, Potassium 3.5, Chloride 98, Carbon Dioxide 31 H, Anion Gap 9.5, BUN 18, Creatinine 1.40 H, Estimated Creat Clear 107, Estimated GFR 58 L, Est GFR ( Amer) 70, Glucose 114 H, Calcium 9.3, C-Reactive Protein 52.6 H I & O for Last 24 hours: Intake & Output 04/29/20 04/30/20 05/01/20 05/02/20 11:59 11:59 11:59 11:59 Intake Total 1989 480 / 480 Balance 1989 480 / 480 Weight 224 lb 5 oz 222 lb 3 oz - *Routine HEENT Exam Comments: Possibly decreased redness. Persistent swelling. Palpable left parotid mass
[2020-05-02 07:25] LABS: Basophils # 0.1 K/mm3 (0-0.2); Basophils % 0.8 % (0.1-2.0); Eosinophils # 0.6 K/mm3 (0.0-0.4); Eosinophils % 6.7 % (0.1-12.0); Hematocrit 42.3 % (42.0-52.0); Hemoglobin 14.5 g/dL (14.1-18.0); Lymphocytes # 2.3 K/mm3 (0.7-4.5); Lymphocytes % 26.7 % (10-50); Mean Corpuscular HGB Conc 34.2 g/dL (31.8-35.4); Mean Corpuscular Hemoglobin 29.9 pg (27.0-31.2); Mean Corpuscular Volume 87.3 fl (80-94); Mean Platelet Volume 8.8 fl (7.4-10.4); Monocytes # 0.5 K/mm3 (0.1-1.0); Monocytes % 6.2 % (1.7-9.3); Neutrophils # 5.1 K/mm3 (1.8-7.8); Neutrophils % 59.5 % (37.0-80.0); Platelet Count 179 K/mm3 (142-424); Red Blood Count 4.84 M/mm3 (4.60-6.20); Red Cell Distribution Width 13.9 % (11.5-17.5); White Blood Count 8.5 K/mm3 (4.8-10.8)
[2020-05-02 07:26] LABS: Chloride 103 mmol/L (98-107); Sodium 136 mmol/L (136-145)
[2020-05-02 07:29] LABS: Blood Urea Nitrogen 18 mg/dl (9-20); Calcium 9.3 mg/dl (8.4-10.2); Carbon Dioxide 29 mmol/L (22.0-30.0); Creatinine Clearance Estimated 106 mL/min (50-200); Estimated Glomerular Filt Rate 58 ml/min (>60); GFR (African American) 70 ML/MIN (>60); Glucose 114 mg/dl (74-100)
[2020-05-02 08:00] VITALS: BP 110/68; PULSE 99; RESP 16; TEMP 36.7; O2SAT 98
--- NOTE | 2020-05-02 08:34 | HMH.DCSUM ---
General - General Admission date:: 04/30/20 Discharge date: 05/02/20 HPI HPI: Mr. Bo is a 34-year-old male who was seen last week in our office after onset of left eye pain and swelling. When seen on , he states that he had had approximately a week of worsening swelling, redness, soreness of his high with a tender lesion in front of his left ear. Denies any change in vision, pain with movement of his eye. No fever or known trauma. Was started on antibiotics at that time and seen for close follow-up over the weekend. On Thursday had subjective improvement in his symptoms and was tolerating oral antibiotics without difficulty. However since Thursday he has had worsening swelling of his eye, tenderness of his eyelids, and increased swelling of left preauricular lymph node. Still remains afebrile. Having clear drainage from his eye. Hemodynamically stable. Decision made to direct admit for further management including imaging of orbits/face with CT and IV antibiotics. Hospital Course Hospital Course: Patient was admitted, placed on intravenous antibiotics and steroids, improved nicely over the next 24 hours, CT scan showed unusual parotid swelling but it was felt to be cellulitis rather than a tumor or an abscess after several discussions with radiology and review of his clinical status. ENT was consulted via phone, they will be available to examine patient given the fact he probably does not need operative intervention. Retro-orbital views from the CT scanner were very reassuring for the lack of orbital cellulitis. This morning the patient feels much better, still has swelling in the periorbital and facial area but vision is intact, extraocular motions are intact and given the lower degree of swelling he wished to be discharged home on p.o. antibiotics and follow-up with ENT as an outpatient. Given his penicillin allergy antibiotic selection is somewhat tenuous, we will select doxycycline and Zyvox for Streptococcus and staphylococcal coverage respectively. Objective Vital signs: Temp Pulse Resp BP Pulse Ox 98.1 F 96 H 16 112/59 L 99 05/02/20 04:00 05/02/20 04:00 05/02/20 04:00 05/02/20 04:00 05/02/20 04:00 no acute distress - *Routine HEENT Exam Head: Present: normocephalic Eye: Present: EOMI, PERRL, other ENT: Present: mucous membranes moist Comments: Swelling symmetrically around the left lateral periorbital area. Sclera clear. Extraocular motions intact, minimal swelling in the maxillary and parotid area but vastly improved over admission exam. - *Routine Neck Exam Present: supple - *Routine Respiratory Exam Present: CTA bilaterally - *Routine Cardiovascular Exam Present: RRR - *Routine Abdominal Exam Present: soft, normoactive bowel sounds. Absent: tenderness - *Routine Extremities Exam Absent: cyanosis, clubbing, edema - *Routine Skin Exam Present: warm. Absent: rash - Detailed Eye Exam Eyelids: Bilateral normal inspection Results Labs on day of discharge: Labs from last 24 hours 05/02/20 05/02/20 05/01/20 06:54 06:54 08:28 WBC 8.5 RBC 4.84 Hgb 14.5 Hct 42.3 MCV 87.3 MCH 29.9 MCHC 34.2 RDW 13.9 Plt Count 179 MPV 8.8 Neut % (Auto) 59.5 Lymph % (Auto) 26.7 [place] % (Auto) 6.2 Eos % (Auto) 6.7 Baso % (Auto) 0.8 Neut # (Auto) 5.1 Lymph # (Auto) 2.3 [place] # (Auto) 0.5 Eos # (Auto) 0.6 H Baso # (Auto) 0.1 Sodium 136 135 L Potassium 4.0 3.5 Chloride 103 98 Carbon Dioxide 29 31 H Anion Gap 8.0 9.5 BUN 18 18 Creatinine 1.40 H 1.40 H Estimated Creat Clear 106 107 Estimated GFR 58 L 58 L Est GFR ( Amer) 70 70 Glucose 114 H 114 H Calcium 9.3 9.3 C-Reactive Protein 52.6 H 05/01/20 08:28 WBC 8.5 D RBC 4.95 Hgb 14.8 Hct 42.8 MCV 86.5 MCH 29.9 MCHC 34.6 RDW 13.3 Plt Count 171 MPV 8.9 Neut % (Auto) 67.3 Lymph
[2020-05-02 11:17] LABS: Vancomycin,Trough 9.3 ug/mL (5.0-10.0)
== END 2020-05-02 12:23 | disposition home or self-care (01) | DRG 603 ==
PROVIDERS: Admitting Provider Internal Medicine Adolescent Medicine; PCP Internal Medicine Adolescent Medicine; Visit Provider Internal Medicine Adolescent Medicine
DX: L03.213 Periorbital cellulitis (principal); N17.9 Acute kidney failure, unspecified; I10 Essential (primary) hypertension; Z87.891 Personal history of nicotine dependence; Z88.0 Allergy status to penicillin; Z79.899 Other long term (current) drug therapy
CPT/HCPCS: 36415; 70482; 80048; 80053; 80202; 85025; 85651; 86140; 86328; J3370; Q9967

== ENCOUNTER → 2021-03-20 10:42 | Outpatient (CLI) | payer OTHER, SELFPAY ==
[2021-03-20 12:01] LABS: Chloride 101 mmol/L (98-107)
[2021-03-20 12:02] LABS: Sodium 141 mmol/L (136-145)
[2021-03-20 12:04] LABS: Alanine Aminotransferase 29 U/L (12-78); Albumin Level 4.7 g/dl (3.5-5.0); Alkaline Phosphatase 56 U/L (38-126); Aspartate Amino Transferase 35 U/L (17-59); Bilirubin,Indirect 0.3 mg/dL (0.0-0.9); Bilirubin,Total 0.3 mg/dl (0.2-1.3); Bilirubin,Unconjugated 0.3 mg/dL (0.0-1.1); Blood Urea Nitrogen 20 mg/dl (9-20); Carbon Dioxide 32 mmol/L (22.0-30.0); Cholesterol 193 mg/dl (140-200); Estimated Glomerular Filt Rate 69 ml/min (>60); GFR (African American) 83 ML/MIN (>60); Triglycerides 202 mg/dl (30-150); VLDL Cholesterol 40 mg/dL (0-40)
[2021-03-20 12:05] LABS: Calcium 9.8 mg/dl (8.4-10.2); Chol/HDL Ratio 5.1 (1-3.5); Glucose 96 mg/dl (74-100); HDL Cholesterol 38 mg/dl (40-60); Total Protein,Serum 7.7 g/dl (6.3-8.2)
[2021-03-20 12:27] LABS: Direct LDL Cholesterol 122.39 mg/dL (100-129)
== END ==
PROVIDERS: Visit Provider Physician Assistant
DX: R06.00 Dyspnea, unspecified (principal); R07.89 Other chest pain; R00.2 Palpitations; R00.0 Tachycardia, unspecified; I10 Essential (primary) hypertension
CPT/HCPCS: 36415; 80048; 80061; 80076

== ENCOUNTER → 2021-03-25 07:39 | Outpatient (CLI) | payer OTHER, SELFPAY ==
--- NOTE | 2021-03-25 07:40 | CA_ITS ---
APPROVED REPORT Appliance Tester: Janice Rios RVT Study Quality: Good Indications: HTN/multiple HTN meds Risk Factors Hypertension Renal Artery Doppler Origin (R) 125.7/ cm/sec Proximal (R) 145.9/ cm/sec Mid (R) 132.9/ cm/sec Distal (R) 161.4/ cm/sec Renal Aorta Ratio (R) 1.13 Segmental A. (R) 62.1/22.9 cm/sec RI: 0.63 Segmental A. Sup (R) 42.5/18.0 cm/sec Segmental A. Mid (R) 62.1/22.9 cm/sec Segmental A. Inf (R) 52.3/18.0 cm/sec Origin (L) 90.9/ cm/sec Proximal (L) 85.3/ cm/sec Mid (L) 109.0/ cm/sec Distal (L) 54.5/ cm/sec Renal Aorta Ratio (L) 0.76 Segmental A. (L) 57.2/22.2 cm/sec RI: 0.61 Segmental A. Sup (L) 57.2/22.2 cm/sec Segmental A. Mid (L) 39.2/15.9 cm/sec Segmental A. Inf (L) 30.7/19.1 cm/sec Renal Measurements Kidney Size (R) 12.8x6.4 cm Cortical Thickness (R) 1.8 cm Kidney Size (L) 11.5x7.3 cm Cortical Thickness (L) 1.4 cm Findings Study suggests no evidence of stenosis of the bilateral renal arteries. Conclusion Study suggests no evidence of stenosis of the bilateral renal arteries. Electronically signed by : Erich Walker MD 03/25/2021 15:48:24
== END ==
PROVIDERS: PCP Internal Medicine Adolescent Medicine; Visit Provider Physician Assistant
DX: R07.89 Other chest pain (principal); R06.00 Dyspnea, unspecified; I10 Essential (primary) hypertension; R00.2 Palpitations
CPT/HCPCS: 93976

== ENCOUNTER → 2022-05-13 17:11 | Outpatient (CLI) | payer OTHER, SELFPAY | PROVIDERS: Visit Provider Nurse Practitioner Family | DX: G47.33 Obstructive sleep apnea (adult) (pediatric) (principal); R06.83 Snoring | CPT/HCPCS: G0399 ==

== ENCOUNTER 2024-07-13 08:55 | Outpatient (CLI) | payer OTHER, SELFPAY ==
[2024-07-13 09:34] LABS: Basophils # 0.1 K/mm3 (0-0.2); Eosinophils # 0.2 K/mm3 (0.0-0.4); Eosinophils % 2.9 % (0.1-12.0); Hematocrit 46.7 % (42.0-52.0); Hemoglobin 16.2 g/dL (14.1-18.0); Lymphocytes % 29.7 % (10-50); Mean Corpuscular HGB Conc 34.7 g/dL (31.8-35.4); Mean Corpuscular Hemoglobin 29.7 pg (27.0-31.2); Mean Corpuscular Volume 85.5 fl (80-94); Mean Platelet Volume 12.2 fl (7.4-10.4); Monocytes # 0.4 K/mm3 (0.1-1.0); Monocytes % 6.4 % (1.7-9.3); Neutrophils # 4.1 K/mm3 (1.8-7.8); Neutrophils % 59.9 % (37.0-80.0); Nucleated Red Blood Cells # 0 10^3/uL; Nucleated Red Blood Cells % 0 %; Platelet Count 139 K/mm3 (142-424); Red Blood Count 5.46 M/mm3 (4.60-6.20); Red Cell Distribution Width 13.1 % (11.5-17.5); Red Cell Distribution Width-SD 40.6 fL; White Blood Count 6.9 K/mm3 (4.8-10.8)
[2024-07-13 10:20] LABS: Albumin Level 4.8 g/dl (3.5-5.0); Chloride 105 mmol/L (98-107); Sodium 142 mmol/L (136-145)
[2024-07-13 10:21] LABS: Potassium 4.4 mmoL/L (3.5-5.1)
[2024-07-13 10:23] LABS: Alanine Aminotransferase 31 U/L (12-78); Alkaline Phosphatase 56 U/L (38-126); Anion Gap 13.4 mEq/L (5-15); Aspartate Amino Transferase 31 U/L (17-59); Bilirubin,Direct 0.1 mg/dl (0.0-0.4); Bilirubin,Indirect 0.4 mg/dL (0.0-0.9); Bilirubin,Total 0.5 mg/dl (0.2-1.3); Bilirubin,Unconjugated 0.4 mg/dL (0.0-1.1); Blood Urea Nitrogen 21 mg/dl (9-20); Calcium 9.6 mg/dl (8.4-10.2); Carbon Dioxide 28 mmol/L (22.0-30.0); Cholesterol 184 mg/dl (140-200); Estimated Glomerular Filt Rate 62 ml/min (>60); GFR (African American) 75 ML/MIN (>60); Glucose 108 mg/dl (74-100); Total Protein,Serum 7.7 g/dl (6.3-8.2); Triglycerides 108 mg/dl (30-150); VLDL Cholesterol 22 mg/dL (0-40)
[2024-07-13 10:24] LABS: Chol/HDL Ratio 4.2 (1-3.5); HDL Cholesterol 44 mg/dl (40-60)
[2024-07-13 10:35] LABS: Direct LDL Cholesterol 114.49 mg/dL (100-129)
[2024-07-13 10:41] LABS: Free T4 (Free Thyroxine) 1.08 ng/dl (0.78-2.19)
[2024-07-13 10:54] LABS: Thyroid Stimulating Hormone 2.54 uIU/mL (0.465-4.68)
== END 2024-07-13 23:59 | disposition home or self-care (01) ==
LOC: LAB 08:56
PROVIDERS: PCP Internal Medicine Adolescent Medicine; Visit Provider Nurse Practitioner Family
DX: I10 Essential (primary) hypertension (principal); E66.811 Obesity, class 1; G47.33 Obstructive sleep apnea (adult) (pediatric); R06.02 Shortness of breath; R42 Dizziness and giddiness
CPT/HCPCS: 36415; 80048; 80061; 80076; 83735; 84439; 84443; 85025

== ENCOUNTER 2024-07-26 13:22 | Outpatient (CLI) | payer OTHER, SELFPAY ==
--- NOTE | 2024-07-26 | CA_ITS ---
APPROVED REPORT EXAM: Comprehensive 2D, Doppler, and color-flow Echocardiogram Director Of Early Childhood Education: Janina Vasques, RCS, RVS Ht: 6 ft 0 in Wt: 237lbs BSA: 2.29 BP: 114/87 mmHg Indications: SOA, RAVI, Ex-smoker, Dizziness 2D Dimensions Left Atrium 3.28 cm M: 3.0 - 4.0 LA Volume 48.70 mL LA Volume Index [id number] mL/m2 (M/F) 16-34 M-Mode Dimensions RVDd 2.32 cm (0.9-2.6) LA Diam 3.60 cm (1.9-4.0) LVDd 5.89 cm (3.5-5.7) LVDs 3.70 cm (3.5-5.7) IVSd 1.01 cm (0.6-1.1) PWd 0.94 cm (0.6-1.1) EF (Teich) 66.30% EPSs 0.61 cm FS 37.20% EDV (Teich) 172.50 mL TAPSE 2.69 (<1.7) ESV (Teich) 58.10 mL LV Diastology E Decel Time 147 (160-240 msec) E/A Ratio 1.76 MED A' 10.90 cm/s LAT A' 8.20 cm/s Aortic Valve REA Index 1.08 cm2/m2 AoV Peak Parvez. 127.0 (50-130 cm/s) AO Peak GR. 6.40 mmHg AO Mean GR. 3.20 (<5 mmHg) AO VTI 23.3 (18-25 cm) REA (VTI) 2.53 (2.5-4.5 cm2) Mitral Valve MV A Velocity 56.0 (40-130 cm/s) E/A Ratio 1.76 Pulmonary Valve OK End VMAX 123.0 cm/s Tricuspid Valve TR P. Velocity 171.00 cm/s RAP Estimate 7.00 mmHg RVSP 18.70 mmHg Left Ventricle The left ventricle is normal size. The left ventricular systolic function is normal. The left ventricular ejection fraction is within the normal range. There is normal left ventricular wall thickness. There is normal LV segmental wall motion. The left ventricular diastolic function is normal. LVEF of 55%. Right Ventricle The right ventricle is normal size. The right ventricular systolic function is normal. Atria The left atrium size is normal. The right atrium size is normal. There is no Doppler evidence of interatrial shunt. Aortic Valve The aortic valve opens well. There is no aortic valvular stenosis. No aortic regurgitation is present. Mitral Valve The mitral valve is normal in structure. No evidence of mitral valve stenosis. There is no mitral valve regurgitation noted. Tricuspid Valve The tricuspid valve leaflets are thin and pliable. Trace tricuspid regurgitation. There is insufficient TR jet to estimate RVSP. Pulmonic Valve The pulmonary valve is normal in structure. Trace pulmonic regurgitation. Great Vessels The aortic root is normal in size. IVC is normal in size and collapses >50% with inspiration. Pericardium There is no pericardial effusion. Other Information Study Quality: Fair Conclusion Normal biventricular systolic function. No significant valvular stenosis or regurgitation. Electronically signed by : Jackie Landis MD 07/31/2024 23:34:41
== END 2024-07-26 23:59 | disposition home or self-care (01) ==
LOC: RT 13:23
PROVIDERS: PCP Internal Medicine Adolescent Medicine; Visit Provider Nurse Practitioner Family
DX: R42 Dizziness and giddiness (principal); R06.02 Shortness of breath
CPT/HCPCS: 93306